=== PATIENT | male | born 1945 | race Asian ===

== ENCOUNTER → 2021-03-22 | Outpatient (CLI) | payer BC, MEDICARE ==
[2013-07-02 14:21] VITALS: BP 157/86
[~2021-03-22] MED LIST: AMLO-187 PO; ASCO500T4 PO; ASPI-482 PO; ATOR20TA58 PO; CHOL500045 PO; HYDR25TA PO; LEVO137T21 PO; LEVO150T5 PO; LOSA100T14 PO; METF850T8 PO; METO25TA4 PO
--- NOTE | 2021-03-22 09:23 | RAD ---
EXAM: Chest, 2 views. HISTORY: Chronic renal disease. COMPARISON: 07/02/2013. FINDINGS: 2 views of chest are obtained. There is blunting of the right costophrenic angle likely due to a small pleural effusion. There is right basilar atelectasis, infiltrate or scarring. There are c hronic appearing interstitial changes. There is cardiomegaly and evidence of prior CABG. There is no pneumothorax. IMPRESSION: 1. Small right pleural effusion with right basilar atelectasis, infiltrate or scarring. 2. Chronic interstitial changes. 3. Mild cardiomegaly. Electronically signed by: Sahra Ulloa MD (03/22/2021 9:21 AM) [id number]
== END ==
LOC: RAD 08:08
PROVIDERS: ATTEND Nurse Practitioner Adult Health
DX: N18.5 Chronic kidney disease, stage 5 (principal); J90 Pleural effusion, not elsewhere classified; J98.11 Atelectasis; I51.7 Cardiomegaly; Z95.1 Presence of aortocoronary bypass graft
CPT/HCPCS: 36415; 71046; 86704; 86706; 86803; 87340

== ENCOUNTER → 2021-04-06 | Outpatient (CLI) | payer MEDICARE ==
[2013-07-02 14:21] VITALS: BP 157/86
== END ==
LOC: LAB 11:08
PROVIDERS: ATTEND Internal Medicine Nephrology
DX: N18.6 End stage renal disease (principal); Z86.11 Personal history of tuberculosis
CPT/HCPCS: 36415; 86481

== ENCOUNTER → 2021-04-17 | Outpatient (CLI) | payer MEDICARE ==
[2013-07-02 14:21] VITALS: BP 157/86
--- NOTE | 2021-04-17 15:40 | KCIC ---
XR CHEST 2V History: Reason: ESRD / Spl. Instructions: / History: Comparison: March 22, 2021 Findings: Small right pleural effusion, unchanged. Enlarged cardiac size, unchanged. No pneumothorax. Prior med kaia sternotomy. No focal consolidation. No pneumothorax. Impression: 1. Right pleural effusion, unchanged. 2. Mild cardiomegaly, unchanged. Electronically signed by: Jesus Sorto DO (04/17/2021 3:38 PM) [id number]
== END ==
LOC: KCIC 08:00
PROVIDERS: ATTEND Internal Medicine Nephrology
DX: J90 Pleural effusion, not elsewhere classified (principal); I51.7 Cardiomegaly; N18.6 End stage renal disease
CPT/HCPCS: 71046

== ENCOUNTER 2021-06-15 07:02 | Day surgery (SDC) | payer MEDICARE ==
[~2021-06-15] VITALS: Ht 165.1 cm; Wt 68.1 kg
[~2021-06-15 07:02] MED LIST changes: +ATEN50TA PO; +DOXA4TAB3 PO; +HEPARIN SODIUM 1,000 UNIT in IV NORMAL SALINE 100ML 100 ML IRR ONE; +HYDROmorphone 2 MG/ML INJ. IVP PRN; +ISOS30TA19 PO; +IV RINGERS,LACTATED 1000ML 1,000 ML IV SCH; +MORPHINE SULFATE 2 MG/ML INJ. IVP PRN; +NIFE60TA41 PO; +PROCHLORPERAZINE 10 MG/2 ML VIAL. IVP PRN; +ceFAZolin SODIUM IV Push 1 GM VIAL. IVP PRN; +fentaNYL PF VIAL 100 MCG/2 ML VIAL IVP PRN
[2021-06-15 08:14] LABS: CALCIUM 7.5 mg/dL (8.5-10.1); CREATININE 4.2 mg/dL (0.7-1.3); GFR 13.8; POTASSIUM 4.4 mmol/L (3.5-5.1)
[2021-06-15] MEDS ORDERED: LIDOCAINE 2% PF 5 ML VIAL. ONE (08:21)
[2021-06-15] MEDS ORDERED: SUCCINYLCHOLINE 200 MG/10 ML VIAL. ONE (08:21)
[2021-06-15] MEDS ORDERED: DEXAMETHASONE SOD PHOS 4 MG/ML VIAL ONE (08:21)
[2021-06-15] MEDS ORDERED: ROCURONIUM 50 MG/5 ML VIAL. ONE (08:21)
[2021-06-15] MEDS ORDERED: ONDANSETRON PF 4 MG/2 ML VIAL. ONE (08:21)
[2021-06-15] MEDS ORDERED: PROPOFOL 10 MG/ML (20ML) VIAL. IV ONE (08:21)
[2021-06-15] MEDS ORDERED: fentaNYL PF VIAL 100 MCG/2 ML VIAL ONE ×2 (08:21→10:33)
[2021-06-15] MEDS ORDERED: PHENYLEPHRINE in 0.9% NACL PF 1 MG/10 ML SYRINGE. IV ONE (08:21)
[2021-06-15] MEDS ORDERED: IV NORMAL SALINE 1000ML BAG 1,000 ML IV SCH (08:30)
[2021-06-15] MEDS ORDERED: BUPIVACAINE-EPI 0.5% 30 ML VIAL KIT. ONE (08:42)
[2021-06-15] MEDS ORDERED: ALBUTEROL SULFATE 8GM INHALER. INH ONE (09:00)
[2021-06-15] MEDS ORDERED: GLYCOPYRROLATE 1 MG/5 ML VIAL. ONE (09:07)
[2021-06-15] MEDS ORDERED: ePHEDrine PF IN SALINE 50 MG/10 ML SYRINGE. IV ONE (09:28)
[2021-06-15] MEDS ORDERED: NEOSTIGMINE METHYLSULFATE 5 MG/5 ML SYRINGE. ONE (09:47)
--- NOTE | 2021-06-15 10:01 | PDOC4 ---
Operative Note Operative Note OPERATIVE NOTE: PREOPERATIVE DIAGNOSIS: Renal failure. POSTOPERATIVE DIAGNOSIS: Renal failure. PROCEDURE: Laparoscopic peritoneal dialysis catheter placement. SURGEON: Ricardo Suh MD AUTOMOBILE SERVICE WRITER: Dustin Cr MS4 ANESTHESIA: General. ESTIMATED BLOOD LOSS: 5 mL. SPECIMENS: None. DRAINS: None. COMPLICATIONS: None. INDICATIONS: The patient is a 76-year-old male who was referred for placement of a peritoneal dialysis catheter due to renal failure and need for dialysis. The details and risks of surgery were discussed with the patient. The risks of surgery include bleeding, infection, visceral injury, pain, anesthetic risk, potential need for additional surgery or procedure. In addition, the patient is aware of the potential for catheter malfunction or dysfunction and possibility of needing revision, replacement, or removal of the catheter. They understand all this and would like to proceed. DESCRIPTION OF PROCEDURE: The patient was brought to the operating room and placed supine on the operating table. General anesthesia was performed. The abdomen was prepped with ChloraPrep and draped in a standard surgical manner. A small incision was made in the patient's right upper quadrant through which a visualized 5-mm trocar was inserted. A pneumoperitoneum was then created and the laparoscope was introduced. Initial inspection showed no significant adhesions in the mid and lower abdomen. There were some adhesions of omentum in the upper abdomen but this seemed as though it would not preclude peritoneal dialysis. Using the placement template, the left abdomen was marked with a planned catheter exit site in the LLQ. A small incision was made to the left of the patient's midline at the marked location for the exit site of the cuff. An 8-mm trocar was inserted through this location. The coiled portion of the lower catheter was then inserted into the pelvis under direct visualization. The cuff was positioned in the rectus musculature. The coiled portion rested well in the inferior mid pelvis. The pneumoperitoneum was then relieved. An incision was then made in the left lower quadrant at the planned exit site. The proximal portion of the catheter was tunnelled subcutaneously to the exit site. The proximal cuff remained in the subcutaneous tissue a few cm away from the exit s ite. The catheter was then assembled to IV tubing and tested by infusing a liter of saline. The saline passed easily into the abdomen and the bag was placed on the floor. Nearly all of the saline readily was retrieved with prompt flow. The abdominal cavity was then reinsufflated and the laparoscope was reintroduced showing no change in the catheter position and the cuff remained in the rectus. The pneumoperitoneum was relieved and the ports were removed. The catheter was then assembled to the connector tubing as per the dialysis instructions. All the incision sites were closed with 4-0 Monocryl. Steri- Strips and sterile dressing were then applied. The patient tolerated procedure well and was sent to the recovery room in stable condition. At the end of the case all counts were correct. RICARDO SUH MD Jun 15, 2021 10:00
[2021-06-15] MEDS ORDERED: HYDR-2761 PO (10:03)
--- NOTE | 2021-06-15 10:04 | DISCH ---
DISCHARGE INSTRUCTIONS Condition on Discharge Condition on Discharge: Stable Activity After Discharge Activity Instructions for Disc: Other, see below (No lifting over 20 lbs X 2 weeks) Diet after Discharge Diet after Discharge: Renal Dialysis Wound Incision Care Wound/Incision Care: Other, see below (keep dressing clean and dry) Follow-Up Follow up with: Dialysis center RICARDO SUH MD Jun 15, 2021 10:04
[2021-06-15] MEDS ORDERED: HYDROcodone/APAP 5/325MG 1 TAB TABLET ONE (10:33)
[2021-06-15 10:53] VITALS: BP 137/37
[2021-06-15] MEDS ORDERED: HYDROcodone/APAP 5/325MG 1 TAB TABLET PO ONE (11:00)
== END 2021-06-15 11:23 | disposition home or self-care (01) ==
LOC: SURG 07:02
PROVIDERS: ATTEND Surgery
DX: N19 Unspecified kidney failure (principal); I25.10 Atherosclerotic heart disease of native coronary artery without angina pectoris; I10 Essential (primary) hypertension; E78.00 Pure hypercholesterolemia, unspecified; M19.90 Unspecified osteoarthritis, unspecified site; E11.9 Type 2 diabetes mellitus without complications; Z87.891 Personal history of nicotine dependence; Z79.82 Long term (current) use of aspirin; Z79.899 Other long term (current) drug therapy; Z99.2 Dependence on renal dialysis; Z98.890 Other specified postprocedural states; Z72.89 Other problems related to lifestyle
CPT/HCPCS: 36415; 49324; 80048; A4213; A4314; A4364; A4930; A6219; A6402; C1752; J0330; J0690; J1100; J1644; J2370; J2405; J2704; J2710; J3010; J3490; A4222; A4452

== ENCOUNTER 2021-09-08 07:44 | Outpatient (CLI) | payer MEDICARE ==
[~2021-09-08] VITALS: Ht 165.1 cm; Wt 75.0 kg
[~2021-09-08 07:44] MED LIST changes: -HEPARIN SODIUM 1,000 UNIT in IV NORMAL SALINE 100ML 100 ML IRR ONE; +HYDR-2761 PO; -HYDROmorphone 2 MG/ML INJ. IVP PRN; -IV RINGERS,LACTATED 1000ML 1,000 ML IV SCH; -MORPHINE SULFATE 2 MG/ML INJ. IVP PRN; -PROCHLORPERAZINE 10 MG/2 ML VIAL. IVP PRN; -ceFAZolin SODIUM IV Push 1 GM VIAL. IVP PRN; -fentaNYL PF VIAL 100 MCG/2 ML VIAL IVP PRN
[2021-09-08] MEDS ORDERED: IOHEXOL 240 MG/ML 50ML VIAL. ONE (08:37)
[2021-09-08] MEDS ORDERED: IOHEXOL 240 MG/ML 50ML VIAL. IJ ONE (09:00)
--- NOTE | 2021-09-08 10:24 | NUR ---
spoke with Kylah arm maker. She stated she would be in touch with the patient regarding dialysis. Pt discharged to home
--- NOTE | 2021-09-08 16:22 | RAD ---
Fluoroscopic evaluation, peritoneal dialysis catheter INDICATION: Catheter will not drain COMPARISON STUDY: None Discussion: Fluoroscopic evaluation demonstrates a peroneal dialysis catheter to be curled in the rig ht lower quadrant. Contrast was administered flowing freely from the catheter into the peritoneal s pace. No gross loculation is identified. Guidewire manipulation of the catheter was attempted, the ca theter though the distal end of the catheter would not referral, or be displaced from the right lower quadrant. Repositioning was not possible. Though saline and contrast was administered, no significan t drainage was identified. Aspiration yielded nothing. Total fluoroscopy time 2.5 minutes Dose area product 11 Miller centimeter squared Impression Peritoneal dialysis catheter coiled in the right lower quadrant. Contrast appears to flow into the pericolic gutter/peritoneum without loculation, though no drainage or aspiration was identif ied. Catheter was also not unfurl and cannot be manipulated into a new position with a wire. Electronically signed by: Kenney Hendrix MD (09/08/2021 4:19 PM) [id number]
== END 2021-09-08 10:26 | disposition home or self-care (01) ==
LOC: INTRAD 07:44
PROVIDERS: ATTEND Internal Medicine Nephrology
DX: Z45.2 Encounter for adjustment and management of vascular access device (principal); I12.9 Hypertensive chronic kidney disease with stage 1 through stage 4 chronic kidney disease, or unspecified chronic kidney disease; E11.22 Type 2 diabetes mellitus with diabetic chronic kidney disease; N18.9 Chronic kidney disease, unspecified; I25.10 Atherosclerotic heart disease of native coronary artery without angina pectoris; E78.00 Pure hypercholesterolemia, unspecified; M19.90 Unspecified osteoarthritis, unspecified site; Z79.82 Long term (current) use of aspirin; Z79.899 Other long term (current) drug therapy; Z98.890 Other specified postprocedural states
CPT/HCPCS: 49400; 74190; C1769; Q9966

== ENCOUNTER 2021-09-19 05:43 | Day surgery (SDC) | payer MEDICARE ==
[~2021-09-19] VITALS: Ht 165.1 cm; Wt 70.4 kg
[2021-09-19] MEDS ORDERED: HEPARIN SODIUM 1,000 UNIT in IV NORMAL SALINE 100ML 100 ML IRR ONE (06:00)
[2021-09-19] MEDS ORDERED: IV NORMAL SALINE 1000ML BAG 1,000 ML IV ONE (06:30)
[2021-09-19] MEDS ORDERED: INSULIN LISPRO 100 UNIT/ML 3ML VIAL for OP,RR ONLY. SQ PRN (06:30)
[2021-09-19 06:32] VITALS: BP 144/65
[2021-09-19] MEDS ORDERED: BUPIVACAINE-EPI 0.25%-1:200000 MPF 30 ML VIAL. ONE (06:58)
[2021-09-19] MEDS ORDERED: HEPARIN for IV BOLUS 10,000 UNIT/10 ML VIAL. ONE (06:58)
[2021-09-19] MEDS ORDERED: LIDOCAINE 2% PF 5 ML VIAL. ONE (07:10)
[2021-09-19] MEDS ORDERED: ROCURONIUM 50 MG/5 ML VIAL. ONE (07:10)
[2021-09-19] MEDS ORDERED: ONDANSETRON PF 4 MG/2 ML VIAL. ONE (07:10)
[2021-09-19] MEDS ORDERED: PROPOFOL 10 MG/ML (20ML) VIAL. IV ONE (07:10)
[2021-09-19] MEDS ORDERED: NEOSTIGMINE METHYLSULFATE 5 MG/5 ML SYRINGE. ONE (07:10)
[2021-09-19] MEDS ORDERED: fentaNYL PF VIAL 100 MCG/2 ML VIAL ONE ×2 (07:11→09:21)
[2021-09-19] MEDS ORDERED: GLYCOPYRROLATE 1 MG/5 ML VIAL. ONE (07:11)
[2021-09-19 07:28] LABS: CALCIUM 7.4 mg/dL (8.5-10.1); CREATININE 3.5 mg/dL (0.7-1.3); GFR 17.1; POTASSIUM 3.7 mmol/L (3.5-5.1)
[2021-09-19] MEDS ORDERED: PHENYLEPHRINE in 0.9% NACL PF 1 MG/10 ML SYRINGE. IV ONE (07:58)
[2021-09-19] MEDS ORDERED: ceFAZolin SODIUM IV Push 1 GM VIAL. IVP PRN (08:00)
[2021-09-19] MEDS ORDERED: SEVOFLURANE 61 TO 120 MINUTES. IH ONE (08:42)
--- NOTE | 2021-09-19 08:55 | PDOC4 ---
Operative Note Operative Note OPERATIVE NOTE: PREOPERATIVE DIAGNOSIS: Renal failure. POSTOPERATIVE DIAGNOSIS: Renal failure. PROCEDURE: Laparoscopic peritoneal dialysis catheter removal and replacement SURGEON: Jaime Suh MD COMMERCIAL BANKER: Nicki Wei MS3 ANESTHESIA: General. ESTIMATED BLOOD LOSS: 10 mL. SPECIMENS: None. DRAINS: None. COMPLICATIONS: None. INDICATIONS: The patient is a 76-year-old male who underwent placement of a peritoneal dialysis catheter months ago. The catheter had been functioning well until recently. The catheter no longer seem to allow for fluid drainage. The plan is to proceed with laparoscopic evaluation, possible revision, possible replacement of the catheter. The details and risks of surgery were discussed with the patient. The risks of surgery include bleeding, infection, visceral injury, pain, anesthetic risk, potential need for additional surgery or procedure. In addition, the patient is aware of the potential for catheter malfunction or dysfunction and possibility of needing revision, replacement, or removal of the catheter. They understand all this and would like to proceed. DESCRIPTION OF PROCEDURE: The patient was brought to the operating room and placed supine on the operating table. General anesthesia was performed. The abdomen was prepped with ChloraPrep and draped in a standard surgical manner. A small incision was made in the patient's left upper quadrant through which a visualized 5-mm trocar was inserted. A pneumoperitoneum was then created and the laparoscope was introduced. Inspection showed malpositioning of the catheter into the right lateral and upper abdomen with dense adherence and infiltration with the omentum. The appearance is consistent with low-grade infection versus inflammation causing omental adhesion and mild location of the catheter. Another 5 mm trocar was inserted in the left lateral abdomen. An 8 mm trocar was placed in the patient's right abdomen. The previous catheter was cut intra-abdominally and the distal portion was removed. The coiled portion of the lower catheter was then inserted through the 8 mm trocar into the mid pelvis under direct visualization. The cuff was positioned in the rectus musculature. The coiled portion rested well in the inferior mid pelvis. The pneumoperitoneum was then relieved. An incision was then made in the right lower quadrant at the exit site. The proximal portion of the catheter was tunnelled subcutaneously to the exit site. The proximal cuff remained in the subcutaneous tissue a few cm away from the exit site. The catheter was then assembled to IV tubing and tested by infusing a liter of saline. The saline passed easily into the abdomen and the bag was placed on the floor. Nearly all of the saline readily was retrieved with prompt flow. The abdominal cavity was then reinsufflated and the laparoscope was reintroduced showing no change in the catheter position and the cuff remained in the rectus. The pneumoperitoneum was relieved and the ports were removed. The catheter was then assembled to the connector tubing as per the dialysis instructions. An incision was made overlying the cuff of the previous left abdominal catheter. The cuff was freed up from the surrounding subcutaneous tissues and the remaining portion of the catheter was fully excised. All the incision sites were closed with 4-0 Monocryl. Steri-Strips and sterile dressing were then applied. The patient tolerated procedure well and was sent to the recovery room in stable condition. At the end of the case all counts were correct. JAIME SUH MD September 19, 2021 08:55
[2021-09-19] MEDS ORDERED: HYDR-2759 PO (08:57)
--- NOTE | 2021-09-19 08:58 | DISCH ---
DISCHARGE INSTRUCTIONS Condition on Discharge Condition on Discharge: Stable Activity After Discharge Activity Instructions for Disc: Other, see below (No lifting over 20 lbs X 2 weeks) Diet after Discharge Diet after Discharge: Renal Dialysis Diet Texture: Regular Wound Incision Care Wound/Incision Care: Other, see below (Keep dressing clean and dry) Follow-Up Follow up with: Dialysis center per appointment RICARDO SUH MD September 19, 2021 08:58
[2021-09-19] MEDS: fentaNYL PF VIAL 100 MCG/2 ML VIAL IVP PRN ×2 (09:26→09:38)
[2021-09-19] MEDS ORDERED: HYDROcodone/APAP 5/325MG 1 TAB TABLET PO ONE (09:30)
[2021-09-19] MEDS ORDERED: PROCHLORPERAZINE 10 MG/2 ML VIAL. IVP PRN (09:30)
[2021-09-19] MEDS ORDERED: fentaNYL PF VIAL 100 MCG/2 ML VIAL IVP PRN (09:30)
[2021-09-19] MEDS ORDERED: HYDROmorphone 2 MG/ML INJ. IVP PRN (09:30)
[2021-09-19] MEDS ORDERED: MORPHINE SULFATE 2 MG/ML INJ. IVP PRN (09:30)
[2021-09-19 10:00] VITALS: BP 124/54
== END 2021-09-19 10:30 | disposition home or self-care (01) ==
LOC: SURG 05:43
PROVIDERS: ATTEND Surgery
DX: N19 Unspecified kidney failure (principal); I10 Essential (primary) hypertension; E78.00 Pure hypercholesterolemia, unspecified; I25.10 Atherosclerotic heart disease of native coronary artery without angina pectoris; M19.90 Unspecified osteoarthritis, unspecified site; E11.9 Type 2 diabetes mellitus without complications; Z87.891 Personal history of nicotine dependence; Z79.82 Long term (current) use of aspirin; Z79.899 Other long term (current) drug therapy; Z98.890 Other specified postprocedural states; Z72.89 Other problems related to lifestyle
CPT/HCPCS: 36415; 49325; 80048; 82962; A4213; A4314; A4364; A4930; A6219; A6402; C1752; J0690; J1644; J2370; J2405; J2704; J2710; J3010; J3490; A4223; A4452